=== PATIENT | male | born 1945 | race Caucasian/White ===

== ENCOUNTER → 2018-03-13 | Outpatient (CLI) | payer MEDICARE ==
[~2018-03-13] MED LIST: APIX5TAB PO; FOLI1CAP16 PO; METO25TA6 PO; OMEP-272 PO; ONDA4TAB4 PO; PARO30TA60 PO; TRAM50TA4 PO; TYL3 PO
== END | disposition home or self-care (01) ==
LOC: SHCH 13:32
PROVIDERS: ATTEND Internal Medicine Cardiovascular Disease
DX: I11.9 Hypertensive heart disease without heart failure (principal)
CPT/HCPCS: 93306

== ENCOUNTER → 2019-02-12 | Outpatient (CLI) | payer MEDICARE | END | disposition home or self-care (01) | LOC: SHCH 11:35 | PROVIDERS: ATTEND Internal Medicine Cardiovascular Disease | DX: I11.9 Hypertensive heart disease without heart failure (principal); I25.10 Atherosclerotic heart disease of native coronary artery without angina pectoris; F17.200 Nicotine dependence, unspecified, uncomplicated | CPT/HCPCS: 93306 ==

== ENCOUNTER → 2019-02-26 | Outpatient (CLI) | payer MEDICARE ==
[~2019-02-26] VITALS: Ht 182.9 cm; Wt 90.3 kg
[~2019-02-26] MED LIST changes: +ALBUMIN (HUMAN) 25% 100 ML IV ONE; +REGADENOSON 0.4 MG/5 ML PF SYG IVP ONE; +REGADENOSON 0.4 MG/5 ML PF SYG IVP SCH
== END | disposition home or self-care (01) ==
LOC: SHCH 07:51
PROVIDERS: ATTEND Internal Medicine Cardiovascular Disease
DX: I25.10 Atherosclerotic heart disease of native coronary artery without angina pectoris (principal)
CPT/HCPCS: 78452; 93017; 96374; A9500 ×2; J2785; P9046

== ENCOUNTER 2019-06-05 06:52 | Day surgery (SDC) | payer MEDICARE ==
[2019-06-02 12:51] VITALS: BP 111/75
[2019-06-02 12:58] LABS: BASOPHILS % (AUTO) 0.8 % (0.0-5.0); EOSINOPHILS % (AUTO) 1.3 % (0.0-8.0); HEMATOCRIT 47.7 % (42-54); LYMPHOCYTES % (AUTO) 18.2 % (21.0-51.0); MEAN CORPUSCULAR HEMOGLOBIN 30.6 pg (27.0-33.0); MEAN CORPUSCULAR VOLUME 92.6 fL (79-99); MONOCYTES % (AUTO) 7.8 % (3.0-13.0); NEUTROPHILS % (AUTO) 71.9 % (40.0-77.0); NUCLEATED RED BLOOD CELLS 0.1 % (0.0-0.19); PLATELET COUNT (AUTO) 276 K/uL (130-400); RED BLOOD CELL COUNT(AUTO) 5.15 MIL/uL (4.50-6.20); RED CELL DISTRIBUTION WIDTH 14.9 % (11.0-15.5); WHITE BLOOD COUNT (AUTO) 14.3 K/uL (4.8-10.8)
[2019-06-02 13:07] LABS: CREATININE 1.8 mg/dL (0.5-1.5); POTASSIUM 4.8 mmol/L (3.5-5.1)
[2019-06-02 13:10] LABS: PARTIAL THROMBOPLASTIN TIME 33.6 SEC (26.3-35.5); PROTHROMBIN TIME 10.5 SEC (9.6-11.6)
--- NOTE | 2019-06-02 14:29 | NUR ---
LABS INFORMED DR. PAUL OF ABNORMAL WBC/BUN/CREA. ORDERS RECEIVED TO REDRAW CBC ON AM OF PROCEDURE.
[~2019-06-05] VITALS: Ht 177.8 cm; Wt 85.3 kg
[2019-06-05] VITALS (8 sets, daily range): BP systolic 91–133; BP diastolic 58–90
[~2019-06-05 06:52] MED LIST changes: -ALBUMIN (HUMAN) 25% 100 ML IV ONE; +CHOL100040 PO; -FOLI1CAP16 PO; +FOLI1TAB85 PO; +GABA-529 PO; +METO100T14 PO; -METO25TA6 PO; +NEXIUM PO; -OMEP-272 PO; -ONDA4TAB4 PO; -REGADENOSON 0.4 MG/5 ML PF SYG IVP ONE; -REGADENOSON 0.4 MG/5 ML PF SYG IVP SCH; +SODIUM BICARB; +SODIUM CHLORIDE 0.9% 1000ML 1,000 ML IV SCH; -TRAM50TA4 PO; -TYL3 PO
--- NOTE | 2019-06-05 07:05 | NUR ---
PRE-PROCEDURE RECEIVED FROM HOME VIA AMBULATING ACCOMPANIED BY FOR SCHEDULED ATRIAL FLUTTER ABLATION WITH DR. PAUL. AWAKE IN NO ACUTE DISTRESS. DENIES CHEST PAIN OR SOA AT PRESENT TIME. CONNECTED TO CONTINUOUS CARDIOPULMONARY MONITORING. SIDE RAILS UP X2, BED IN LOWEST POSITION, CALL LIGHT W/IN REACH.
[2019-06-05 07:41] LABS: BASOPHILS % (AUTO) 1.4 % (0.0-5.0); EOSINOPHILS % (AUTO) 2.1 % (0.0-8.0); HEMATOCRIT 43.7 % (42-54); LYMPHOCYTES % (AUTO) 28.2 % (21.0-51.0); MEAN CORPUSCULAR HEMOGLOBIN 30.6 pg (27.0-33.0); MEAN CORPUSCULAR HGB CONC 33.7 g/dL (32.0-36.0); MEAN CORPUSCULAR VOLUME 90.9 fL (79-99); MONOCYTES % (AUTO) 8.7 % (3.0-13.0); NEUTROPHILS % (AUTO) 59.6 % (40.0-77.0); PLATELET COUNT (AUTO) 275 K/uL (130-400); RED BLOOD CELL COUNT(AUTO) 4.81 MIL/uL (4.50-6.20); WHITE BLOOD COUNT (AUTO) 11.7 K/uL (4.8-10.8)
--- NOTE | 2019-06-05 07:45 | NUR ---
FOLLOW UP LABS DR. PAUL NOTIFIED OF REPEAT WBC COUNT OF 11.7. NO NEW ORDERS RECEIVED.
--- NOTE | 2019-06-05 08:30 | NUR ---
MD NOTIFICATION DR. APUL NOTIFIED THAT PT TOOK HIS DOSE OF ELIQUIS LAST NIGHT AT 2100. NO NEW ORDERS RECEIVED.
[2019-06-05] MEDS ORDERED: HEPARIN SODIUM 1000UNIT/ML 10ML VIAL ONE (09:02)
[2019-06-05] MEDS ORDERED: LIDOCAINE HCL 2% 20ML ONE (09:03)
--- NOTE | 2019-06-05 09:04 | NUR ---
PROCEDURE TRANSFERRED TO LIGHT ARMORED VEHICLE OFFICER BY EHSAN LASSITER RN VIA BED. AWAKE IN NO ACUTE DISTRESS.
[2019-06-05] MEDS ORDERED: MEPERIDINE-PF 25 MG/ML SYG ONE ×3 (09:34→10:18)
[2019-06-05] MEDS ORDERED: MIDAZOLAM HCL 1 MG/ML 2ML VIAL ONE ×3 (09:34→10:18)
--- NOTE | 2019-06-05 11:45 | NUR ---
POST-PROCEDURE RECEIVED FROM INFORMATION SECURITY ANALYST VIA BED BY EHSAN LASSITER RN S/P ATRIAL FLUTTER ABLATION. AWAKE, DROWSY IN NO ACUTE DISTRESS. DENIES PAIN. EDUCATED TO KEEP RIGHT LEG STRAIGHT AND HEAD FLAT. PT VERBALIZED UNDERSTANDING. SIDE RAILS UP X2, BED IN LOWEST POSITION, CALL LIGHT W/IN REACH.
--- NOTE | 2019-06-05 13:17 | NUR ---
ACTIVITY HOB ELEVATED TO 25 DEGREES. CATH SITE W/O SIGNS OF BLEEDING; SITE SOFT, NON-TENDER. REINFORCED TEACHING TO KEEP RIGHT LEG FREE OF MOVEMENT. PT VERBALIZED UNDERSTANDING.
--- NOTE | 2019-06-05 14:00 | NUR ---
ACTIVITY UP TO CHAIR W/O COMPLICATIONS/CATH SITE W/O SIGNS OF BLEEDING; SITE SOFT, NON-TENDER, DRESSING CD&I.
--- NOTE | 2019-06-05 14:17 | NUR ---
DISCHARGE INSTRUCTIONS DAY PT DISCHARGE INSTRUCTION SHEET, MED REC, AND PT SUMMARY REVIEWED WITH PT AND . PT EDUCATED ON HOW TO CHECK CATH SITE FOR SIGNS OF BLEEDING AND FOR SIGNS OF BLEEDING TO APPLY DIRECT PRESSURE OVER AREA. PT VERBALIZED UNDERSTANDING. OPPORTUNITY GIVEN TO ASK QUESTIONS. QUESTIONS ADDRESSED.
--- NOTE | 2019-06-05 14:25 | NUR ---
DISCHARGE DISCHARGED VIA W/C. AWAKE IN NO ACUTE DISTRESS.
== END 2019-06-05 14:25 | disposition home or self-care (01) ==
LOC: DAH 06:52
PROVIDERS: ATTEND Internal Medicine Cardiovascular Disease
DX: I48.3 Typical atrial flutter (principal); I48.91 Unspecified atrial fibrillation; M19.90 Unspecified osteoarthritis, unspecified site; K21.9 Gastro-esophageal reflux disease without esophagitis; N18.3 Chronic kidney disease, stage 3 (moderate); F17.210 Nicotine dependence, cigarettes, uncomplicated; Z79.01 Long term (current) use of anticoagulants; Z79.899 Other long term (current) drug therapy; Z98.890 Other specified postprocedural states; Z86.718 Personal history of other venous thrombosis and embolism; Z82.49 Family history of ischemic heart disease and other diseases of the circulatory system
CPT/HCPCS: 36415 ×2; 80048; 85025 ×2; 85610; 85730; 93613; 93621; 93653; A4606; A4649 ×2; C1730; C1732; C1894 ×2; J1644 ×2; J2175 ×2; J2250 ×2; J3490; J7030; 93005; 99156; 99157

== ENCOUNTER 2019-06-06 01:24 | Emergency (ER) | payer MEDICARE ==
[~2019-06-06 01:24] MED LIST changes: -SODIUM CHLORIDE 0.9% 1000ML 1,000 ML IV SCH
[2019-06-06 02:18] LABS: BASOPHILS % (AUTO) 0.5 % (0.0-5.0); EOSINOPHILS % (AUTO) 0.2 % (0.0-8.0); HEMATOCRIT 43.5 % (42-54); LYMPHOCYTES % (AUTO) 9.8 % (21.0-51.0); MEAN CORPUSCULAR HEMOGLOBIN 30.5 pg (27.0-33.0); MEAN CORPUSCULAR HGB CONC 32.7 g/dL (32.0-36.0); MEAN CORPUSCULAR VOLUME 93.3 fL (79-99); MONOCYTES % (AUTO) 5.1 % (3.0-13.0); NEUTROPHILS % (AUTO) 84.4 % (40.0-77.0); PLATELET COUNT (AUTO) 249 K/uL (130-400); RED BLOOD CELL COUNT(AUTO) 4.66 MIL/uL (4.50-6.20); WHITE BLOOD COUNT (AUTO) 20.5 K/uL (4.8-10.8)
[2019-06-06 02:25] LABS: CREATININE 2.4 mg/dL (0.5-1.5); INR 0.98 (0.85-1.15); PARTIAL THROMBOPLASTIN TIME 27.4 SEC (26.3-35.5); POTASSIUM 5.3 mmol/L (3.5-5.1); PROTHROMBIN TIME 10.3 SEC (9.6-11.6)
[2019-06-06 02:34] LABS: ALBUMIN 3.9 g/dL (3.5-5.0); BILIRUBIN,TOTAL 0.6 mg/dL (0.2-1.0); TOTAL PROTEIN, SERUM 7.5 g/dL (6.0-8.3)
[2019-06-06] MEDS ORDERED: ASPIRIN 325 MG TABLET ONE (03:52)
[2019-06-06] MEDS ORDERED: ORPHENADRINE CITRATE 30 MG/ML ML ONE (03:53)
== END 2019-06-06 05:19 | disposition home or self-care (01) ==
LOC: EDH 01:24
DX: R07.89 Other chest pain (principal); M25.511 Pain in right shoulder; M25.512 Pain in left shoulder; I10 Essential (primary) hypertension; Z72.0 Tobacco use
CPT/HCPCS: 36415; 71045; 80053; 82550; 83690; 83874; 83880; 84484 ×2; 85025; 85610; 85730; 93005; 96374; 99285; J2360